=== PATIENT | male | born 1960 | race Caucasian/White ===

== ENCOUNTER 2018-03-10 01:50 | Emergency (ER) | payer BC ==
[~2018-03-10 01:50] MED LIST: CALC600T63 PO; CHOL100062 PO; LOR5 PO; NO ROUTINE MEDS; PREDNISON
[2018-03-10] MEDS ORDERED: LEVO50TA86 PO (01:58)
[2018-03-10 02:24] LABS: PLATELET COUNT, AUTOMATED 174 K/uL (150-450)
--- NOTE | 2018-03-10 02:25 | ER Report ---
History and Physical Time Seen By MD: 02:00 Hx. of Stated Complaint: UPPER RIGHT BACK PAIN. RADIATES TO UPPER NECK AND DOWN RIGHT ARM HPI/ROS CHIEF COMPLAINT: back and right shoulder and arm pain HISTORY OF PRESENT ILLNESS: This is a 57 year old male. He is having some pain in the back and back of his shoulder and right arm. No injury or overuse injury suspected. Feels like it is in the area around his shoulder blade. Seem to worsen with different positions or motions. Unable to reproduce with palpation. No rashes. No shortness of breath. Pain does not change with deep breaths. No anterior chest pain or palpitations. No cough, fever, runny nose or sore throat. Has not had pain like this previously. He has no history of heart problems. No lung diseases. He has had recent shingles in his right foot and took an antiviral for this and it is getting better. Allergies: Coded Allergies: No Known Drug Allergies (Verified , 03/10/18) Home Meds Reported Medications Levothyroxine Sodium (LEVOTHYROXINE SODIUM) 50 Mcg Tablet, 50 MCG PO QDAY, TAB 03/10/18 Calcium Carbonate (CALCIUM) 600 Mg Tablet, 600 MG PO QDAY 06/08/13 Cholecalciferol (Vitamin D3) (VITAMIN D) 10,000 Unit Capsule, 74419 UNIT PO QDAY 06/08/13 Reviewed Nurses Notes: Yes Constitutional Vital Sign - Last 24 Hours 03/10/18 03/10/18 03/10/18 03/10/18 01:54 02:15 02:30 02:42 Pulse 60 ? Resp 16 14 B/P (MAP) 148/88 124/83 (97) ???/??? (1665) 132/100 (111) Pulse Ox 93 93 O2 Delivery Room Air 03/10/18 03/10/18 03/10/18 03/10/18 02:45 03:00 03:15 03:25 Pulse 59 62 66 62 Resp 14 10 13 B/P (MAP) 122/91 (101) 136/94 (108) Pulse Ox 93 93 95 Physical Exam General Appearance: The patient is alert. No acute distress. Non-toxic in appearance. Eyes: Pupils are equal, round. Reactive to light. No pallor, injection or icterus. Extraocular movements are intact. ENT: Mucous membranes are moist. Normal oral mucosa. Posterior oropharynx is normal. Neck: Supple and non tender. Respiratory: Lungs are clear to auscultation. Cardiovascular: Regular rate and rhythm. No murmurs, gallops or rubs. Normal capillary refill. Gastrointestinal: Abdomen is soft and non tender. Nondistended. Normal active bowel sounds. Neurological: Alert and oriented x3. No focal neurologic deficits; normal sensation and movement in the right arm. Skin: Warm and dry. No rashes. Musculoskeletal: Not able to reproduce pain with palpation of the arm/shoulder, shoulder blade, or in the area of rhomboids, levator scapulae or trapezius. No pain in the paraspinous muscles or midline spine in cervical or thoracic area. Full range of motion. DIFFERENTIAL DIAGNOSIS: After history and physical exam, differential diagnosis was considered for pain in the back, shoulder and arm. We'll need to rule out cardiac and pulmonary causes and we'll look for other inflammatory causes as well. Does not appear to be shingles as there is no rash but could be early shingles, although this is less likely given the fact that he is recently had shingles. Based on history, it does not sound like this is an overuse injury or other injury. Also unable to reproduce the pain with palpation. Medical Decision Making Data Points Result Diagram: 03/10/18 0213 03/10/183 Laboratory Hematology Test 03/10/18 02:13 Red Blood Count 4.86 M/uL (4.00-5.60) Mean Corpuscular Volume 90.8 fL (80.0-96.0) Mean Corpuscular Hemoglobin 32.7 pg (26.0-33.0) Mean Corpuscular Hemoglobin Concent 36.1 g/dL (32.0-36.0) Red Cell Distribution Width 13.6 % (11.5-14.5) Mean Platelet Volume 7.5 fL (7.2-11.1) Neutrophils (%) (Auto) 47.6 % (39.4-72.5) Lymphocytes (%) (Auto) 39.0 % (17.6-49.6) Monocytes (%) (Auto) 7.9 % (4.1-12.4) Eosinophils (%) (Auto) 4.3 % (0.4-6.7) Basophils (%) (Auto) 1.2 % (0.3-1.4) Nucleated RBC Relative Count (auto) 0.1 /100WBC Neutrophils # (Auto) 2.8 K/uL (2.0-7.4) Lymphocytes # (Auto) 2.3 K/uL (1.3-3.6) Monocytes # (Auto) 0.5 K/uL (0.3-1.0) Eosinophils # (Auto) 0.3 K/uL (0.0-0.5) Basophils # (Auto) 0.1 K/uL (0.0-0.1) Nucleated RBC Absolute Count (auto) 0.00 K/uL D-Dimer Quantitative (PE/DVT) < 0.27 ug/ml (0-0.50) Sodium Level 140 mmol/L (137-145) Potassium Level 3.7 mmol/L (3.5-5.0) Chloride Level 106 mmol/L (98-107) Carbon Dioxide Level 21 mmol/L (22-30) Blood Urea Nitrogen 24 mg/dl (9-21) Creatinine 0.90 mg/dl (0.66-1.25) Glomerular Filtration Rate Calc > 60.0 Random Glucose 93 mg/dl (75-110) Calcium Level 9.2 mg/dl (8.4-10.2) Total Bilirubin 1.3 mg/dl (0.2-1.3) Aspartate Amino Transf (AST/SGOT) 40 U/L (0-35) Alanine Aminotransferase (ALT/SGPT) 69 U/L (0-56) Alkaline Phosphatase 110 U/L (0-126) Troponin I < 0.012 ng/ml C-Reactive Protein < 0.5 mg/dl (<1.0) Total Protein 7.1 gm/dl (6.3-8.2) Albumin 4.0 g/dl (3.5-5.0) Chemistry Test 03/10/18 02:13 White Blood Count 5.9 k/uL (4.5-11.0) Red Blood Count 4.86 M/uL (4.00-5.60) Hemoglobin 15.9 g/dL (14.0-18.0) Hematocrit 44.1 % (42.0-52.0) Mean Corpuscular Volume 90.8 fL (80.0-96.0) Mean Corpuscular Hemoglobin 32.7 pg (26.0-33.0) Mean Corpuscular Hemoglobin Concent 36.1 g/dL (32.0-36.0) Red Cell Distribution Width 13.6 % (11.5-14.5) Platelet Count 174 K/uL (150-450) Mean Platelet Volume 7.5 fL (7.2-11.1) Neutrophils (%) (Auto) 47.6 % (39.4-72.5) Lymphocytes (%) (Auto) 39.0 % (17.6-49.6) Monocytes (%) (Auto) 7.9 % (4.1-12.4) Eosinophils (%) (Auto) 4.3 % (0.4-6.7) Basophils (%) (Auto) 1.2 % (0.3-1.4) Nucleated RBC Relative Count (auto) 0.1 /100WBC Neutrophils # (Auto) 2.8 K/uL (2.0-7.4) Lymphocytes # (Auto) 2.3 K/uL (1.3-3.6) Monocytes # (Auto) 0.5 K/uL (0.3-1.0) Eosinophils # (Auto) 0.3 K/uL (0.0-0.5) Basophils # (Auto) 0.1 K/uL (0.0-0.1) Nucleated RBC Absolute Count (auto) 0.00 K/uL D-Dimer Quantitative (PE/DVT) < 0.27 ug/ml (0-0.50) Glomerular Filtration Rate Calc > 60.0 Calcium Level 9.2 mg/dl (8.4-10.2) Total Bilirubin 1.3 mg/dl (0.2-1.3) Aspartate Amino Transf (AST/SGOT) 40 U/L (0-35) Alanine Aminotransferase (ALT/SGPT) 69 U/L (0-56) Alkaline Phosphatase 110 U/L (0-126) Troponin I < 0.012 ng/ml C-Reactive Protein < 0.5 mg/dl (<1.0) Total Protein 7.1 gm/dl (6.3-8.2) Albumin 4.0 g/dl (3.5-5.0) Coagulation Test 03/10/18 02:13 D-Dimer Quantitative (PE/DVT) < 0.27 ug/ml EKG/Imaging EKG Interpretation 12 lead EKG: Rhythm: normal sinus rhythm [place]: normal QRS: normal ST segments: normal Imaging CHEST PA AND LAT HISTORY: Back and right shoulder pain for one day. No known injury. COMPARISON: Concurrent right shoulder x-rays. TECHNIQUE: PA and lateral views of the chest. FINDINGS: Pulmonary: Lungs are clear. There is no pneumothorax or pleural effusion. Cardiomediastinal: Cardiac and mediastinal silhouettes are within normal limits. Bones/soft tissues: No acute osseous abnormality. There is mild degenerative change of the spine. There is mild wedging of T10-L1, unchanged from lumbar spine x-rays of October 2008, likely physiologic wedging. The visible abdomen is normal. IMPRESSION: 1. No acute cardiopulmonary process. Report Dictated By: Brittney Phillips at 03/10/2018 2:59 AM SHOULDER MIN 2 VIEWS RIGHT HISTORY: Back and right shoulder pain for one day. No known injury. COMPARISON: None. 2 view chest x-ray was performed concurrently. TECHNIQUE: AP, Grashey, and scapular Y views of the right shoulder. FINDINGS: There is no fracture or dislocation. There is mild degenerative change of the acromioclavicular joint. The visible thorax is normal. There is mild degenerative change of the spine. IMPRESSION: 1. Mild degenerative changes, but no acute osseous abnormality of the right shoulder. Report Dictated By: Brittney Phillips at 03/10/2018 3:02 AM ED Course/Re-evaluation Clinical Indication for ER IV: IV Access ED Course Labs are unremarkable other than a little prerenal with BUN and creatinine suggesting mild dehydration. Discussed this with the patient and he will increase his fluid intake. Troponin and d-dimer were negative. This appears to be an inflammatory response and the patient will go ahead and take ibuprofen 800 mg 3 times a day to see if this will resolve. I also offered a muscle relaxer, he can certainly call back and I'll be happy to call this and if he changes his mind, but he would prefer just to use the anti-inflammatory at this time. Decision to Disposition Date: Mar 10, 2018 Decision to Disposition Time: 03:30 Depart Departure Latest Vital Signs Vital Signs Date Time Temp Pulse Resp B/P (MAP) Pulse Ox O2 Delivery O2 Flow Rate FiO2 03/10/18 03:25 62 13 95 03/10/18 03:00 136/94 (108) 03/10/18 01:54 Room Air Impression: Primary Impression: Musculoskeletal back pain Condition: Improved Disposition: HOME OR SELF-CARE Referrals: ISRAEL SHAFFER (PCP) Patient Instructions: Musculoskeletal Pain (ED) Additional Instructions: We suspect that your pain is inflammatory in nature, but do not have a direct cause. Labs, EKG and imaging tonight did not reveal a cause. You were a little bit dehydrated on your labs, so we would like to have you drink more fluids. Take Ibuprofen 200mg over the counter tablets, take 4 tablets every 8 hours with food for the next 5-7 days. We could also provide a muscle relaxer if you would like. Please see your regular doctor or return to the ER for worsening or persistent symptoms. ALEX TARANGO MD Mar 10, 2018 02:25
--- NOTE | 2018-03-10 02:27 | EKG ---
FACILITY: [facility] [place] PATIENT NAME: VALORIE CONKLIN : [id number] MR: [id number] V: [id number] EXAM DATE: ORDERING PHYSICIAN: ALEX TARANGO TECHNOLOGIST: SHASHANK Smart Reason : SHOULDER PAIN Blood Pressure : / mmHG Vent. Rate : 062 BPM Atrial Rate : 062 BPM P-R Int : 166 ms QRS Dur : 096 ms QT Int : 422 ms P-R-T Axes : 035 001 030 degrees QTc Int : 428 ms Normal sinus rhythm Normal ECG No previous ECGs available Confirmed by SALUD WALTERS ([id number]) on 03/10/2018 6:42:46 AM Referred By: EMELINA Confirmed By:SALUD WALTERS
[2018-03-10 03:00] VITALS: BP 136/94
--- NOTE | 2018-03-10 03:21 | RADIOLOGY IMAGING REPORT ---
FACILITY: [facility] PATIENT NAME: Bk Izaguirre : 1960 MR: [id number] V: [id number] EXAM DATE: ORDERING PHYSICIAN: ALEX TARANGO TECHNOLOGIST: Location: [facility] Patient: Bk Izaguirre : 1960 Visit/Account:[id number] Date of Sevice: 03/10/2018 SHOULDER MIN 2 VIEWS RIGHT HISTORY: Back and right shoulder pain for one day. No known injury. COMPARISON: None. 2 view chest x-ray was performed concurrently. TECHNIQUE: AP, Grashey, and scapular Y views of the right shoulder. FINDINGS: There is no fracture or dislocation. There is mild degenerative change of the acromioclavic ular joint. The visible thorax is normal. There is mild degenerative change of the spine. IMPRESSION: 1. Mild degenerative changes, but no acute osseous abnormality of the right shoulder. Report Dictated By: Brittney Phillips at 03/10/2018 3:02 AM Report E-Signed By: Brittney Phillips at 03/10/2018 3:04 AM WSN:[id number]
--- NOTE | 2018-03-10 03:21 | RADIOLOGY IMAGING REPORT ---
FACILITY: [facility] [place] PATIENT NAME: Bk Izaguirre : 1960 MR: [id number] V: [id number] EXAM DATE: ORDERING PHYSICIAN: ALEX TARANGO TECHNOLOGIST: Location: [facility] Patient: Bk Izaguirre : 1960 Visit/Account:[id number] Date of Sevice: 03/10/2018 CHEST PA AND LAT HISTORY: Back and right shoulder pain for one day. No known injury. COMPARISON: Concurrent right shoulder x-rays. TECHNIQUE: PA and lateral views of the chest. FINDINGS: Pulmonary: Lungs are clear. There is no pneumothorax or pleural effusion. Cardiomediastinal: Cardiac and mediastinal silhouettes are within normal limits. Bones/soft tissues: No acute osseous abnormality. There is mild degenerative change of the spine. The re is mild wedging of T10-L1, unchanged from lumbar spine x-rays of October 2008, likely physiologic wedging. The visible abdomen is normal. IMPRESSION: 1. No acute cardiopulmonary process. Report Dictated By: Brittney Phillips at 03/10/2018 2:59 AM Report E-Signed By: Brittney Phillips at 03/10/2018 3:02 AM WSN:[id number]
== END 2018-03-10 03:40 | disposition home or self-care (01) ==
LOC: ER 02:00
DX: M54.6 Pain in thoracic spine (principal)
CPT/HCPCS: 71046; 82040; 82247; 82310; 82374; 82435; 82565; 82947; 84075; 84132; 84155; 84295; 84450; 84460; 84484; 84520; 85025; 85379; 86140; 93005; 99283

== ENCOUNTER 2019-04-07 00:16 | Day surgery (SDC) | payer BC ==
[~2019-04-07] VITALS: Ht 182.9 cm; Wt 84.8 kg
[~2019-04-07 00:16] MED LIST changes: +ASPI-1471 PO; +ATOR20TA22 PO; +LACT1CAP6 PO; +LEVO137T23 PO; +LEVO50TA86 PO; +LIDOCAINE/SOD BICARB 8.4% SYR ID ONE; +MV-M1CAP15; +NORMOSOL R SOLN(*) 1000 ML BAG 1,000 ML IV PRN; +UBID100C48 PO
[2019-04-07 06:00] VITALS: BP 125/92
[2019-04-07] MEDS ORDERED: LIDOCAINE/SOD BICARB 8.4% SYR ID ONE (06:30)
[2019-04-07] MEDS ORDERED: NORMOSOL R SOLN(*) 1000 ML BAG 1,000 ML IV PRN (06:30)
[2019-04-07] MEDS ORDERED: PROPOFOL EMUL(*) 10MG/ML 20 ML 20 ML ONE ×2 (07:04→07:37)
[2019-04-07 07:46] VITALS: BP 108/69
--- NOTE | 2019-04-07 07:52 | Short(Outpt) Discharge Summary ---
Discharge Summary Reason for Hosp/Final Diag: (1) History of colon polyps Status: Chronic Hospital Course & Plan: Colonoscopy completed without problems, normal. Recommend colonoscopy in 5 years due to h/o polyp on last c-scope. Departure Discharge to: Home, Self Care Discharge Instructions Home Meds Reported Medications Mv-Mn/FA/Vit K/Lycop/Lut/Coq10 (Daily Multivitamin Capsule) Unknown Strength Capsule 08/25/18 Lactobacillus Combination No.4 (PROBIOTIC) Unknown Strength Capsule, PO, CAPSULE 08/25/18 Ubidecarenone (COQ-10) 100 Mg Capsule, 100 MG PO DAILY, CAPSULE 08/25/18 Atorvastatin Calcium (LIPITOR) 20 Mg Tablet, 1 TAB PO QDAY, TAB 08/25/18 Levothyroxine Sodium (LEVOTHYROXINE SODIUM) 137 Mcg Tablet, 137 MCG PO QDAY 08/25/18 Diet: Regular Activity: As Tolerated Special Instructions: Your colonoscopy was completed without problems and your prep was excellent (Good Job!!). I didn't find any polyps or other abnormalities, your colonoscopy was completely normal. I recommend that your next colonoscopy be in 5 years due to your history of colon polyps. HARISH ALFREDO MD April 07, 2019 07:52
[2019-04-07 08:04] VITALS: BP 106/78
[2019-04-07 08:34] VITALS: BP 120/90
[2019-04-07 08:36] VITALS: BP 117/91
== END 2019-04-07 08:45 | disposition home or self-care (01) ==
LOC: OR 00:16
PROVIDERS: ATTEND Surgery
DX: Z12.11 Encounter for screening for malignant neoplasm of colon (principal); Z86.010 Personal history of colon polyps
CPT/HCPCS: 00812; 45378; J2704